=== PATIENT | male | born 1950 | race Caucasian/White ===

== ENCOUNTER 2019-05-12 04:58 | Inpatient (IN) | payer BC ==
[~2019-05-12] VITALS: Ht 185.4 cm; Wt 133.8 kg
[2019-05-12] VITALS (12 sets, daily range): BP systolic 136–157; BP diastolic 74–94
--- NOTE | 2019-05-12 05:15 | NUR ---
MS ADMINISTRATIVE OFFICE SPECIALIST NOTE PATIENT ARRIVED ONTO UNIT WITH [facility] AMBULATION, AT [facility] FOR DAY SURGERY FOR LEFT TOTAL KNEE ARTHROPLASTY SCHEDULED TODAY. A/O X4. TOLERATING ROOM AIR, O2 SAT 96%. RESPIRATIONS ARE EVEN AND UNLABORED, NO S./S SOB NOTED. DENIES PAIN AT THIS TIME. IV ACCESS IN LAC #20 PATENT AND SALINE LOCKED. BELONGINGS LIST COMPLETED, SKIN ASSESSMENT COMPLETED, SKIN INTACT, CONSENTS FOR SURGERY, BLOOD, ANESTHESIA SIGNED, OR CHECKLIST COMPLETED. PATIENT CHANGED INTO GOWN AT THIS TIME. COMPLETE ADMISSION COMPLETE. BED IS LOW AND LOCKED, SIDE RAILS UP X2, HOB ELEVATED 20 DEGREES. CALL LIGHT WITHIN REACH. WILL CONTINUE TO MONITOR.
[2019-05-12] MEDS ORDERED: ANESTHESIA TRAY IN PYXIS 1 EA TRAY MC ONE (05:50)
[2019-05-12] MEDS ORDERED: BACITRACIN 50000 UNITS/VIAL ONE (05:50)
--- NOTE | 2019-05-12 06:20 | NUR ---
MS RN NOTE PATIENT LEFT TO SURGERY WITH OR NURSE IN BED. WILL ENDORSE NEXT SHIFT.
[2019-05-12] MEDS ORDERED: TRANEXAMIC ACID 3,000 MG in SODIUM CHLORIDE IRRIG SOLUTION 70 ML IR ONE (06:30)
[2019-05-12] MEDS ORDERED: HYDROMORPHONE INJ 2 MG/ML DISP.SYRIN ONE (06:38)
[2019-05-12] MEDS ORDERED: BISACODYL SUPP (10 MG) 10 MG/SUPP.RECT SUPP.RECT RC PRN ×3 (07:00→12:00)
[2019-05-12] MEDS ORDERED: MENTHOL/CETYLPYRD (CEPACOL) 1 LOZ LOZENGE MM PRN (07:00)
[2019-05-12] MEDS ORDERED: MAG HYDROX/AL HYDROX/SIMETH 30 ML UDC PO PRN ×2 (07:30→12:00)
[2019-05-12] MEDS ORDERED: NALOXONE HCL 0.4 MG/ML AMPUL IV PRN (07:30)
[2019-05-12] MEDS ORDERED: SCOPOLAMINE HBR 1 EA PATCH.TD72 TD PRN ×2 (07:30)
[2019-05-12] MEDS ORDERED: MORPHINE SULFATE SR 30 MG TABLET.SA PO SCH ×2 (09:00→21:00)
--- NOTE | 2019-05-12 09:35 | NUR ---
tele poultry sexer: notes received pt from recovery room with dx: s/p left total knee arthroplasty. awake, a/ox4. dressing to left lower ext c/d/i with scd and ice pack. all orders carried out and noted. at bedside. oriented to room and surroundings. vss. instructed to call for assistance. will monitor.
[2019-05-12] MEDS: DOCUSATE SODIUM 100 MG CAPSULE PO SCH ×2 (10:17→16:09)
[2019-05-12] MEDS ORDERED: DOCU-141 PO (10:22)
[2019-05-12] MEDS ORDERED: BISA10SU61 RC (10:22)
[2019-05-12] MEDS ORDERED: SCOP1PAT11 TD (10:22)
[2019-05-12] MEDS ORDERED: BENZ1LOZ58 MM (10:22)
[2019-05-12] MEDS ORDERED: MAG355OR18 PO (10:22)
[2019-05-12] MEDS ORDERED: HYDR4TAB4 PO (10:22)
[2019-05-12] MEDS ORDERED: DULO20CA PO (10:22)
[2019-05-12] MEDS ORDERED: MORP30TA59 PO (10:22)
[2019-05-12] MEDS ORDERED: NALO0.4D4 IJ (10:22)
[2019-05-12] MEDS: HYDROMORPHONE HCL 2 MG TABLET PO PRN (10:24)
--- NOTE | 2019-05-12 10:24 | NUR ---
tele forestry aid technician: notes c/o 01/25 left knee pain, medicated with dilaudid 8mg po as ordered. awaiting for activities manager. remains at bedside. will continue to monitor.
--- NOTE | 2019-05-12 11:24 | NUR ---
tele pulley man: notes pt still c/o 01/25 pain. 2 rn preparing realtime reporter at this time. remains at bedside. will continue to monitor.
[2019-05-12] MEDS: HYDROMORPHONE MDV 30 MG in IV NS 0.9% 15 ML, PCA TOTAL VOLUME 1 BAG IV PRN ×3 (11:25)
--- NOTE | 2019-05-12 11:25 | NUR ---
tele custom frame assembler: notes body shop technician dilaudid started by 2 rn at this time with teaching provided to pt. remains at bedside. will monitor.
[2019-05-12] MEDS ORDERED: SENNOSIDES 8.6 MG TABLET PO PRN (11:30)
[2019-05-12] MEDS ORDERED: ZOLPIDEM TARTRATE 5 MG TABLET PO PRN (11:30)
[2019-05-12] MEDS: MORPHINE SULFATE SR 15 MG TABLET.SA PO SCH ×2 (11:35→21:19)
--- NOTE | 2019-05-12 11:35 | NUR ---
tele data recovery planner: notes pt still in a lot of pain despite metalizing machine operator dilaudid was started. ms contin 60mg po given as ordered. remains at bedside. instructed to call for assistance. will continue to monitor.
[2019-05-12] MEDS: IV D5/0.45 NACL 1,000 ML IV PRN ×2 (11:38→23:34)
[2019-05-12] MEDS ORDERED: NALOXONE HCL IJ SCH (12:00)
[2019-05-12] MEDS ORDERED: [UNRECOGNIZED DRUG - OTHER] MM PRN (12:00)
[2019-05-12] MEDS ORDERED: BENZOCAINE MM PRN (12:00)
[2019-05-12] MEDS ORDERED: HYDROMORPHONE HCL 2 MG PO PRN (12:00)
[2019-05-12] MEDS ORDERED: MENTHOL MM PRN (12:00)
--- NOTE | 2019-05-12 12:35 | NUR ---
tele boring machine operator vertical: notes pain is better per pt as stated. remains at bedside. call light within reach. will continue to monitor.
[2019-05-12 12:48] LABS: BASOPHILS % (AUTO) 0.2 % (0.0-2.0); HEMATOCRIT 44 % (39-51); HEMOGLOBIN 14.4 g/dL (13.5-17.5); LYMPHOCYTES # (AUTO) 0.7 /CMM (0.8-4.8); LYMPHOCYTES % (AUTO) 5.5 % (20.0-44.0); MEAN CORPUSCULAR HGB CONC 33 g/dl (31.0-36.0); MEAN CORPUSCULAR VOLUME 91 fL (80-96); MONOCYTES # (AUTO) 0.2 /CMM (0.1-1.30); MONOCYTES % (AUTO) 1.5 % (2.0-12.0); NEUTROPHILS % (AUTO) 92.8 % (43.0-81.0); PLATELET COUNT (AUTO) 212 /CMM (150-450); RED BLOOD CELL COUNT(AUTO) 4.78 MIL/uL (4.5-6.0); WHITE BLOOD COUNT (AUTO) 11.9 K/uL (4.3-11.0)
[2019-05-12 12:52] LABS: CALCIUM, SERUM 8.5 mg/dL (8.5-10.1); CREATININE 0.7 mg/dL (0.6-1.3); POTASSIUM 3.5 mmol/L (3.5-5.1)
--- NOTE | 2019-05-12 13:25 | NUR ---
tele automotive machinist: notes p.t. eval and tx done at this time.
--- NOTE | 2019-05-12 14:30 | NUR ---
tele educational technology coordinator: notes pt request to have bipap on at this time. r.t. at bedside. will continue to monitor.
[2019-05-12] MEDS: ANCEF 1 GM/50 ML D5W IV SCH ×4 (15:15→23:33)
--- NOTE | 2019-05-12 16:09 | NUR ---
tele mushroom spawn maker: notes pt wants to skip stool softener, stated, "i normally have it once a day."
--- NOTE | 2019-05-12 16:10 | NUR ---
tele mine shifter: notes bipap off at this time. instructed to call for assistance. pt remains on process owner 0.4mg with no basal rate with lockout int 12mins. pain is controlled per pt. will continue to monitor.
[2019-05-12] MEDS ORDERED: DOCUSATE SODIUM 100 MG CAPSULE PO SCH (17:00)
[2019-05-12] MEDS: HYDROMORPHONE INJ 2 MG/ML DISP.SYRIN SQ PRN (18:26)
--- NOTE | 2019-05-12 18:26 | NUR ---
tele trashman: notes cotton washer machine malfunction due to battery. called central for replacement. dilaudid 2mg sq given to right upper arm as ordered. at bedside. needs attended. will continue to monitor.
[2019-05-12] MEDS ORDERED: KEY,NONCONTROL,TO KEEP IN PYXI 1 EA MC ONE (18:34)
--- NOTE | 2019-05-12 18:35 | NUR ---
tele senior data quality analyst: notes business coordinator machine replaced by 2 rn and connected to pt. instructed to call for assistance. will continue to monitor.
--- NOTE | 2019-05-12 19:00 | NUR ---
tele disaster recovery coordinator: notes report given to pedro luis (britany) for continuity of care.
--- NOTE | 2019-05-12 19:55 | NUR ---
M/S RN OPENING NOTES PATIENT RECEIVED RESTING IN BED A/O x4. ABLE TO MAKE NEEDS KNOWN. PATIENT HAS NO CURRENT COMPLAINTS OF PAIN IT IS BEING MANAGED AND NO SIGNS OF ACUTE DISTRESS. PATIENT ON 2L OF O2 VIA NC. IV LOCATED ON LAC #20 ORCHARD HAND SET UP 0.4 MG AND LOCKOUT 12 MINUTES. SAFETY PRECAUTIONS IN PLACE WITH BED IN LOWEST POSITION, BED LOCKED, AND CALL LIGHT WITHIN REACH. WILL CONTINUE TO MONITOR.
[2019-05-12] MEDS: DULOXETINE HCL 30 MG CAPSULE.DR PO SCH (21:17)
--- NOTE | 2019-05-12 21:19 | NUR ---
M/S RN NOTE WAS UNABLE TO SCAN MEDICATION FOR SCHEDULED MORPHINE SULFATE SR 2100. MEDICATION THAT WAS AVAILABLE IN [facility] WAS EXTENDED RELEASE ONLY. CALLED PHARMACY, NO ONE ANSWERED. SPOKE WITH BITUMINOUS DISTRIBUTOR OPERATOR, ATTEMPTED TO CHANGE ORDER TO EXTENDED RELEASE BUT ONLY SLOW RELEASE AVAILABLE.
[2019-05-12] MEDS: ONDANSETRON HCL/PF 4 MG/2 ML VIAL IV PRN (21:43)
[2019-05-12] MEDS ORDERED: DULOXETINE HCL 20 MG CAPSULE.DR PO SCH (22:00)
[2019-05-13] MEDS: HYDROMORPHONE INJ 2 MG/ML DISP.SYRIN SQ PRN ×4 (00:17→21:29)
[2019-05-13] MEDS: HYDROMORPHONE HCL 2 MG TABLET PO PRN (05:52)
[2019-05-13 06:21] LABS: HEMOGLOBIN 13.3 g/dL (13.5-17.5)
--- NOTE | 2019-05-13 07:00 | NUR ---
M/S RN CLOSING NOTES PATIENT CURRENTLY RESTING IN BED A/O x4. NO SIGNS OF ACUTE DISTRESS OR SOB. ON 2L OF O2 NC. IV LOCATED ON L AC #20. CYLINDER LOADER SET UP FOR PAIN MANAGEMENT. SAFETY PRECAUTIONS IN PLACE WITH BED IN LOWEST POSITION, LOCKED, AND CALL LIGHT WITHIN REACH. WILL ENDORSE TO ONCOMING SHIFT ABOUT GALI.
--- NOTE | 2019-05-13 07:30 | NUR ---
RN OPENING NOTES PATIENT RECEIVED RESTING IN BED A/O x4,ABLE TO MAKE NEEDS KNOWN. PATIENT HAS NO CURRENT COMPLAINTS OF PAIN IT IS BEING MANAGED AND NO SIGNS OF ACUTE DISTRESS. PATIENT ON 2L OF O2 VIA NC. IV ON LAC #20 OIL OPERATOR SET UP 0.4 MG AND LOCKOUT 12 MINUTES. INSTRUCTED TO CALL FOR ASSISTANCE. SAFETY PRECAUTIONS IN PLACE WITH BED IN LOWEST POSITION, BED LOCKED, AND CALL LIGHT WITHIN REACH. WILL CONTINUE TO MONITOR.
[2019-05-13 08:00] VITALS: BP 158/107
--- NOTE | 2019-05-13 08:45 | NUR ---
rn notes patient nauseous and vomited 300ml emesis. zofran 4mg iv given as ordered. will reassess patient accordingly
[2019-05-13] MEDS: ONDANSETRON HCL/PF 4 MG/2 ML VIAL IV PRN ×2 (08:49→18:10)
[2019-05-13] MEDS ORDERED: HEPARIN SODIUM, PORCINE 5000 UNITS/1 ML VIAL SQ SCH (09:00)
[2019-05-13] MEDS ORDERED: ASPIRIN 325 MG TABLET PO SCH (09:00)
[2019-05-13] MEDS: DOCUSATE SODIUM 100 MG CAPSULE PO SCH ×2 (09:43→18:05)
[2019-05-13] MEDS: MORPHINE SULFATE SR 15 MG TABLET.SA PO SCH ×2 (09:43→18:09)
--- NOTE | 2019-05-13 09:45 | NUR ---
rn notes heparin 5000 units sq given as ordered. no bleeding or bruising noted
--- NOTE | 2019-05-13 10:00 | NUR ---
rn notes patient refused to be repositioned and to be check on the back. per patient, he doesnt want to be moved or repositioned. he also refused to be cleaned. patient wanted to rest for now.
[2019-05-13] MEDS ORDERED: METOCLOPRAMIDE HCL 10 MG/2 ML VIAL IV PRN (11:00)
[2019-05-13] MEDS ORDERED: KEY,NONCONTROL,TO KEEP IN PYXI 1 EA MC ONE (11:43)
[2019-05-13] MEDS: HYDROMORPHONE MDV 30 MG in IV NS 0.9% 15 ML, PCA TOTAL VOLUME 1 BAG IV PRN ×3 (11:46)
--- NOTE | 2019-05-13 11:46 | NUR ---
rn notes: SPINNING BATH PERSON changed dilaudid bag on SPINNING BATH PERSON pump. on 0.4mg with no basal rate with lockout int 12mins. witness by BrigidRN. Wasted 13ml of dilaudid on previous bag on med destroyer witness by BrigidRN
[2019-05-13 11:52] LABS: BASOPHILS % (AUTO) 0.3 % (0.0-2.0); EOSINOPHILS % (AUTO) 0.2 % (0.0-6.0); HEMATOCRIT 41 % (39-51); HEMOGLOBIN 13.8 g/dL (13.5-17.5); LYMPHOCYTES # (AUTO) 1.7 /CMM (0.8-4.8); LYMPHOCYTES % (AUTO) 15.9 % (20.0-44.0); MEAN CORPUSCULAR HGB CONC 33 g/dl (31.0-36.0); MEAN CORPUSCULAR VOLUME 91 fL (80-96); MONOCYTES # (AUTO) 1.2 /CMM (0.1-1.30); MONOCYTES % (AUTO) 11.1 % (2.0-12.0); NEUTROPHILS # (AUTO) 7.5 /CMM (1.8-8.9); NEUTROPHILS % (AUTO) 72.5 % (43.0-81.0); PLATELET COUNT (AUTO) 200 /CMM (150-450); RED BLOOD CELL COUNT(AUTO) 4.54 MIL/uL (4.5-6.0); WHITE BLOOD COUNT (AUTO) 10.4 K/uL (4.3-11.0)
[2019-05-13] MEDS ORDERED: BUME0.2513 PO (12:17)
--- NOTE | 2019-05-13 12:24 | NUR ---
rn notes called dr vines to ask if he can order norco. per , "norco is not going to help". also made him aware about nausea and vomiting episodes the patient had, per md, give the scopalamine patch. no new order for pain mgt.
[2019-05-13] MEDS ORDERED: SCOPOLAMINE HBR 1 EA PATCH.TD72 TD PRN (12:30)
[2019-05-13] MEDS: BUMETANIDE (1 MG) 1 MG TABLET PO SCH ×3 (13:23→18:06)
[2019-05-13 16:00] VITALS: BP 159/96
--- NOTE | 2019-05-13 18:00 | NUR ---
rn notes offered turning and repositioning every 2hrs throughout the shift but patient refused. patient doesnt want to be repositioned, he said he can move a little bit. explained risk and benefit but still refused. reminded patient to turn and move every 2hrs as needed to prevent any skin breakdown, verbalized understanding.
[2019-05-13] MEDS: IV D5/0.45 NACL 1,000 ML IV PRN (18:04)
--- NOTE | 2019-05-13 19:20 | NUR ---
RN CLOSING NOTES PATIENT IN STABLE CONDITION. ALL NEEDS ATTENDED AND PROVIDED. ALL DUE MEDS GIVEN ORDERED. KEPT PATIENT SAFE AND COMFORTABLE. BED IN LOW/LOCKED POSITION, SIDERAILS UPX2, CALL LIGHT IN REACH. ENDORSED TO NIGHT RN FOR GALI.
--- NOTE | 2019-05-13 19:45 | NUR ---
MS RN OPENING NOTES RECEIVED PATIENT FROM MORNING SHIFT, ALERT AND ORIENTED X 4. VERBALLY RESPONSIVE AND ABLE TO FOLLOW DIRECTIONS. BREATHING REGULAR AND UNLABORED ON ROOM AIR. LEFT AC G20 IV LINE INTACT AND PATENT, INFUSING WELL WITH NO BLEEDING OR S/S OF INFECTION/INFILTRATION OBSERVED. BODY ASSESSMENT DONE; S/P LEFT KNEE ARTHROPLASTY WITH CLEAN INTACT DRESSING; NO ACTIVE BLEEDING NOTED. COMPLAINED OF 2/10 LEFT KNEE PAIN; STATISTICIAN PUMP ON-GOING, HEALTH TEACHING OF HOW TO USE PUMP GIVEN. NON-PHARMACOLOGIC INTERVENTIONS PROVIDED. NO EPISODE OF NAUSEA/VOMITING SEEN OF THE TIME. ON CLEAR LIQUID DIET, TOLERATING WELL. CALL LIGHT IN REACH. BED LOW AND LOCKED ON SEMI FOWLERS POSITION. WILL CONTINUE TO MONITOR.
[2019-05-13] MEDS: ASPIRIN 325 MG TABLET PO SCH (19:49)
[2019-05-13 20:33] VITALS: BP 151/97
[2019-05-13 20:45] VITALS: BP 151/97
[2019-05-13] MEDS: DULOXETINE HCL 30 MG CAPSULE.DR PO SCH (21:23)
--- NOTE | 2019-05-13 21:30 | NUR ---
MS RN NOTES COMPLAINED OF 9/10 LEFT KNEE PAIN, DILAUDID 2MG GIVEN SQ. VITAL SIGNS WNL. NON-PHARMACOLOGIC INTERVENTIONS DONE. WILL CONTINUE TO MONITOR.
[2019-05-14] MEDS: IV D5/0.45 NACL 1,000 ML IV PRN ×2 (02:23→14:50)
[2019-05-14] MEDS: MORPHINE SULFATE SR 15 MG TABLET.SA PO SCH ×3 (02:34→17:24)
--- NOTE | 2019-05-14 05:45 | NUR ---
MS RN NOTES SEEN BY WITH NO NEW ORDER.
--- NOTE | 2019-05-14 06:25 | NUR ---
MS RN CLOSING NOTES PATIENT IN BED ALERT AND ORIENTED X 4. VERBALLY RESPONSIVE AND ABLE TO FOLLOW DIRECTIONS. BREATHING REGULAR AND UNLABORED ON OXYGEN VIA NASAL CANNULA AT 2L/MIN. LEFT AC G20 IV LINE INTACT AND PATENT, INFUSING WELL WITH NO BLEEDING OR S/S OF INFECTION/INFILTRATION OBSERVED. S/P LEFT KNEE ARTHROPLASTY WITH CLEAN INTACT DRESSING; NO ACTIVE BLEEDING NOTED. NO COMPLAINTS OF PAIN/DISCOMFORT REPORTED OF THE TIME. PROJECT MANAGER INDUSTRIAL PUMP ON-GOING. NO EPISODE OF NAUSEA/VOMITING SEEN THE WHOLE SHIFT. CALL LIGHT IN REACH. BED LOW AND LOCKED ON SEMI FOWLERS POSITION. WILL ENDORSE TO MORNING SHIFT FOR GALI.
[2019-05-14 06:46] LABS: BASOPHILS % (AUTO) 0.4 % (0.0-2.0); EOSINOPHILS % (AUTO) 0.4 % (0.0-6.0); HEMATOCRIT 40 % (39-51); HEMOGLOBIN 13.4 g/dL (13.5-17.5); LYMPHOCYTES # (AUTO) 1.4 /CMM (0.8-4.8); LYMPHOCYTES % (AUTO) 15.2 % (20.0-44.0); MEAN CORPUSCULAR HGB CONC 33 g/dl (31.0-36.0); MEAN CORPUSCULAR VOLUME 91 fL (80-96); NEUTROPHILS # (AUTO) 6.6 /CMM (1.8-8.9); PLATELET COUNT (AUTO) 213 /CMM (150-450); RED BLOOD CELL COUNT(AUTO) 4.42 MIL/uL (4.5-6.0)
[2019-05-14 07:01] LABS: CALCIUM, SERUM 8.4 mg/dL (8.5-10.1); CREATININE 0.6 mg/dL (0.6-1.3); MAGNESIUM 1.8 mg/dL (1.8-2.4); PHOSPHORUS 1.8 mg/dL (2.5-4.9); POTASSIUM 3.5 mmol/L (3.5-5.1)
[2019-05-14 08:00] VITALS: BP 155/84
--- NOTE | 2019-05-14 08:00 | NUR ---
MS RN OPENING NOTES RECEIVED PT ALERT AND ORIENTED X 4. VERBALLY RESPONSIVE AND ABLE TO FOLLOW DIRECTIONS. BREATHING REGULAR AND UNLABORED ON ROOM AIR. LEFT AC G20 IV LINE INTACT AND PATENT, INFUSING WELL WITH NO BLEEDING OR S/S OF INFECTION/INFILTRATION OBSERVED. BODY ASSESSMENT DONE; S/P LEFT KNEE ARTHROPLASTY WITH CLEAN INTACT DRESSING; NO ACTIVE BLEEDING NOTED. COMPLAINED OF 2/10 LEFT KNEE PAIN; CAR SHUNTER PUMP ON-GOING, HEALTH TEACHING OF HOW TO USE PUMP GIVEN. NON-PHARMACOLOGIC INTERVENTIONS PROVIDED. NO EPISODE OF NAUSEA/VOMITING SEEN OF THE TIME. ON CLEAR LIQUID DIET, TOLERATING WELL. CALL LIGHT IN REACH. BED LOW AND LOCKED ON SEMI FOWLERS POSITION. WILL CONTINUE TO MONITOR.
[2019-05-14] MEDS: DOCUSATE SODIUM 100 MG CAPSULE PO SCH ×2 (08:43→16:20)
[2019-05-14] MEDS: BUMETANIDE (1 MG) 1 MG TABLET PO SCH ×2 (08:43→16:19)
[2019-05-14] MEDS: ASPIRIN 325 MG TABLET PO SCH ×2 (08:43→16:19)
[2019-05-14] MEDS ORDERED: K PHOS NEUTRAL 250 MG TABLET PO ONE (11:00)
[2019-05-14] MEDS ORDERED: FLUT16SP NS (12:18)
[2019-05-14] MEDS ORDERED: GLUC-141 PO (12:18)
[2019-05-14] MEDS ORDERED: TAMS-12 PO (12:18)
[2019-05-14] MEDS ORDERED: AMLO5TAB4 PO (12:18)
[2019-05-14] MEDS ORDERED: POTA20TA83 PO (12:18)
[2019-05-14] MEDS ORDERED: QUIN20TA18 PO (12:18)
[2019-05-14] MEDS ORDERED: LAMO25TA10 PO (12:18)
[2019-05-14] MEDS ORDERED: SIMV10TA98 PO (12:18)
[2019-05-14] MEDS ORDERED: GABA600T12 PO (12:18)
[2019-05-14] MEDS ORDERED: META800T85 PO (12:18)
[2019-05-14] MEDS ORDERED: CALC-883 PO (12:18)
[2019-05-14] MEDS ORDERED: METO-357 PO (12:18)
[2019-05-14] MEDS ORDERED: DIVA-78 PO ×2 (12:18)
[2019-05-14] MEDS ORDERED: CHOL50004 PO (12:18)
[2019-05-14] MEDS ORDERED: VITA1TAB56 PO (12:18)
[2019-05-14] MEDS ORDERED: ASPI-605 PO (12:18)
[2019-05-14] MEDS ORDERED: CETI-108 PO (12:18)
[2019-05-14] MEDS ORDERED: LOFE0.18 PO (12:18)
[2019-05-14] MEDS ORDERED: DULO30CA2 PO (12:18)
[2019-05-14 14:00] VITALS: BP 164/89
[2019-05-14] MEDS: AMLODIPINE BESYLATE 5 MG TABLET PO SCH (14:29)
[2019-05-14] MEDS: HYDROMORPHONE HCL 2 MG TABLET PO PRN (14:30)
[2019-05-14 16:00] VITALS: BP 164/97
[2019-05-14] MEDS ORDERED: HOME MED MISCELLANEOUS XX SCH ×2 (17:30)
[2019-05-14] MEDS ORDERED: GABAPENTIN 400 MG CAPSULE PO SCH (17:30)
[2019-05-14] MEDS ORDERED: QUINAPRIL HCL 10 MG TABLET PO SCH (17:30)
[2019-05-14] MEDS ORDERED: BUMETANIDE (1 MG) 1 MG TABLET PO SCH (17:30)
[2019-05-14] MEDS: METOPROLOL SUCCINATE 50 MG TAB.SR.24H PO SCH (17:42)
--- NOTE | 2019-05-14 17:50 | NUR ---
[facility] 1 MG PO ADMINISTERED AT 1619.[facility] HAS A DOUBLE ENTRY ORDER
--- NOTE | 2019-05-14 17:59 | NUR ---
PT'S GIRLFRIEND NOTIFIED OF BRINGING PT'S ACCUPRIL HOME MED AND THE GIRLFRIEND STATED THAT PT'S HOME MEDS ARE IN [place] AND NO FAMILY OR FRIEND CAN BRING IT OVER HERE.
--- NOTE | 2019-05-14 18:09 | NUR ---
PHARMACY MADE AWARE
--- NOTE | 2019-05-14 19:15 | NUR ---
MS RN PM OPENING NOTES BEDSIDE REPORT RECIEVED FROM RITA MAYORGA. PT ALERT AND ORIENTED X 4. VERBALLY RESPONSIVE AND ABLE TO FOLLOW DIRECTIONS. BREATHING REGULAR AND UNLABORED ON 2LNC. LEFT AC G20 IV LINE INTACT AND PATENT, NO S/S OF INFECTION/INFILTRATION OBSERVED. S/P LEFT KNEE ARTHROPLASTY WITH CLEAN INTACT DRESSING; NO ACTIVE BLEEDING NOTED. DENIES ANY MAJOR PAIN TO LEFT KNEE REVIEWED PAIN MANAGEMENT PLAN WITH PATIENT VERBALIZED UNDERSTANDING. CALL LIGHT IN REACH. BED LOW AND LOCKED ON SEMI FOWLERS POSITION. REVIEWED POC. QUESTIONS CONCERNS ADDRESSED WILL CONTINUE TO MONITOR.
[2019-05-14 20:38] VITALS: BP 140/86
[2019-05-14] MEDS: DULOXETINE HCL 30 MG CAPSULE.DR PO SCH (21:14)
[2019-05-14] MEDS: DIVALPROEX SODIUM 500 MG TABLET.DR PO SCH (21:15)
[2019-05-14] MEDS: SIMVASTATIN 10 MG TABLET PO SCH (21:15)
[2019-05-14] MEDS: TAMSULOSIN 0.4 MG CAP.SR.24H PO SCH (21:15)
--- NOTE | 2019-05-14 23:40 | NUR ---
RT NOTE PATIENT REQUESTED OFF BIPAP. NO SOB NOTED. PLACED BACK ON 2 L NASAL CANNULA. SPO2 94% HR 81 BPM. WILL CONTINUE TO MONITOR. Addendum: 05/14/19 at 2342 by NAYA MEJIA RT Amended: Links added.
[2019-05-15] MEDS: IV D5/0.45 NACL 1,000 ML IV PRN ×2 (00:37→08:48)
--- NOTE | 2019-05-15 00:51 | NUR ---
pt was not tolerating bipap and taken off by rt earlier tonight. pt seen with eyes closed at this time rr of 16 spo2 94% on 2lnc.
[2019-05-15] MEDS: MORPHINE SULFATE SR 15 MG TABLET.SA PO SCH ×4 (02:00→17:06)
--- NOTE | 2019-05-15 02:00 | NUR ---
non admin ms contin per speaking with patient earlier pt did not want to be awaken to take medication. rr of16 seen in room with eyes closed on 2lnc spo2 94%
--- NOTE | 2019-05-15 05:00 | NUR ---
pt seen, denies pain discomfort at this time. verbalized understanding to call for assistance if needed. bed down locked call light in reach
[2019-05-15 06:48] LABS: CALCIUM, SERUM 8.6 mg/dL (8.5-10.1); CREATININE 0.5 mg/dL (0.6-1.3); POTASSIUM 3.5 mmol/L (3.5-5.1)
--- NOTE | 2019-05-15 07:30 | NUR ---
RN PM CLOSING NOTE PT SEEN WITH EYES CLOSED. BREATHING REGULAR AND UNLABORED ON 2LNC. LEFT AC G20 IV LINE INTACT AND PATENT, NO S/S OF INFECTION/INFILTRATION OBSERVED. CALL LIGHT IN REACH. BED LOW AND LOCKED ON SEMI FOWLERS POSITION.
[2019-05-15 08:00] VITALS: BP_SYST 154; BP_DIAS 86; BP_DIAS 89
--- NOTE | 2019-05-15 08:00 | NUR ---
MS RN AM OPENING NOTES PT ALERT AND ORIENTED X 4. VERBALLY RESPONSIVE AND ABLE TO FOLLOW DIRECTIONS. BREATHING REGULAR AND UNLABORED ON 2LNC. LEFT AC G20 IV LINE INTACT AND PATENT, NO S/S OF INFECTION/INFILTRATION OBSERVED. S/P LEFT KNEE ARTHROPLASTY WITH CLEAN INTACT DRESSING; NO ACTIVE BLEEDING NOTED. DENIES ANY MAJOR PAIN TO LEFT KNEE REVIEWED PAIN MANAGEMENT PLAN WITH PATIENT VERBALIZED UNDERSTANDING. CALL LIGHT IN REACH. BED LOW AND LOCKED ON SEMI FOWLERS POSITION. REVIEWED POC. QUESTIONS CONCERNS ADDRESSED WILL CONTINUE TO MONITOR.
[2019-05-15] MEDS: FLUTICASONE PROPIONATE 16 GM BOTTLE NS SCH (08:52)
[2019-05-15] MEDS: LamoTRIgine 25 MG TABLET PO SCH (08:53)
[2019-05-15] MEDS: DULOXETINE HCL 30 MG CAPSULE.DR PO SCH ×2 (08:54→21:56)
[2019-05-15] MEDS: CALCIUM CARBONATE 500 MG TAB.CHEW PO SCH (08:54)
[2019-05-15] MEDS: DIVALPROEX SODIUM 500 MG TABLET.DR PO SCH ×2 (08:54→21:56)
[2019-05-15] MEDS: POTASSIUM CHLORIDE 20 MEQ TAB.PRT.SR PO SCH ×2 (08:55→16:15)
[2019-05-15] MEDS: AMLODIPINE BESYLATE 5 MG TABLET PO SCH (08:55)
[2019-05-15] MEDS: VITAMIN B COMP W-C 1 TAB TABLET PO SCH (08:55)
[2019-05-15] MEDS: DOCUSATE SODIUM 100 MG CAPSULE PO SCH ×2 (08:56→16:15)
[2019-05-15] MEDS: METOPROLOL SUCCINATE 50 MG TAB.SR.24H PO SCH (08:56)
[2019-05-15] MEDS: BUMETANIDE (1 MG) 1 MG TABLET PO SCH ×2 (08:56→16:15)
[2019-05-15] MEDS: GABAPENTIN 300 MG CAPSULE PO SCH ×2 (08:56→16:15)
[2019-05-15] MEDS: cetrizine 10 MG TABLET PO SCH (08:56)
[2019-05-15] MEDS: ASPIRIN 325 MG TABLET PO SCH ×2 (08:57→16:15)
[2019-05-15] MEDS ORDERED: AMLODIPINE BESYLATE 5 MG TABLET PO SCH (09:00)
[2019-05-15] MEDS ORDERED: CHOLECALCIFEROL (VITAMIN D 3) 400 UNIT TABLET PO SCH (09:00)
[2019-05-15] MEDS ORDERED: QUINAPRIL HCL 10 MG TABLET PO SCH (09:00)
[2019-05-15] MEDS ORDERED: CHOLECALCIFEROL 1,000 UNIT TABLET (VIT D3) PO SCH (11:00)
[2019-05-15] MEDS ORDERED: POLYETHYLENE GLYCOL 3350 17 GM POWD.PACK PO PRN (12:00)
--- NOTE | 2019-05-15 12:47 | NUR ---
PT AMBULATED WITH P.T. USING FWW-TOLERATING WELL.
[2019-05-15 13:00] VITALS: BP 135/82
[2019-05-15] MEDS: LISINOPRIL (20MG) 20 MG TABLET PO SCH (13:49)
--- NOTE | 2019-05-15 13:50 | NUR ---
PT DESATURATES TO 86% IN ROOM AIR WITHOUT C/O SOB/DISTRESS.PLACED PT BACK ON O2 AT 2L/MIN VIA NC WITH 92% O2 SAT.WILL INFORM CHACHO GONZALEZ.
--- NOTE | 2019-05-15 14:00 | NUR ---
ENCOURAGED TO USE INCENTIVE SPIROMETER EVERY TWO HRS WHILE AWAKE.CXR ORDERED
[2019-05-15 16:00] VITALS: BP 164/97
--- NOTE | 2019-05-15 16:00 | NUR ---
PT'S BP WAS 164/97 HR 83 WHILE DRINKING COFFEE.WILL RECHECK LATER.
--- NOTE | 2019-05-15 17:00 | NUR ---
RECHECKED BP MANUALLY 150/80 HR 80.WITH O2 SAT OF 96% WITH O2 AT 2L/MIN VIA NC. REINFORCED TO USE INCENTIVE SPIROMETER EVERY TWO HRS WHILE AWAKE.
[2019-05-15 17:09] VITALS: BP 150/80
--- NOTE | 2019-05-15 17:16 | NUR ---
PT IS ON/OFF WITH IVF D51/2 NS AT 125 ML/HR DUE TO WORKING OUT WITH P.T. 2X TODAY.
--- NOTE | 2019-05-15 19:35 | NUR ---
MS/RN NOTES RECEIVED PT. LYING IN BED RESTING. PT. IS EASILY AROUSABLE TO NAME. PT. IS AWAKE, ALERT AND ORIENTED X4. BREATHING EVEN AND UNLABORED ON 2LPM O2 VIA NC. NO SOB, RESPIRATORY DISTRESS OR COMPLAINTS OF PAIN NOTED AT THIS TIME. PT. WITH LEFT AC 20 GAUGE PERIPHERAL IV PRESENT, PATENT AND INTACT ADMINISTERING TO PT. D5 1/2 NS @ 125 ML/HR. PT. WITH LEFT KNEE SURGICAL DRESSING PRESENT, CLEAN, DRY AND INTACT. PER DAYSHIFT NURSE MD ONLY TO CHANGE DRESSING. BED LOCKED AND IN LOWEST POSITION, SIDE RAILS UP X3, CALL LIGHT WITHIN REACH, WILL CONTINUE TO MONITOR.
[2019-05-15 20:00] VITALS: BP 132/80
[2019-05-15] MEDS: TAMSULOSIN 0.4 MG CAP.SR.24H PO SCH (21:57)
[2019-05-15] MEDS: SIMVASTATIN 10 MG TABLET PO SCH (21:57)
--- NOTE | 2019-05-15 22:01 | NUR ---
RN NOTES Had to do manual barcode for the scheduled night meds because computer before the scanned meds could be saved. Already discarded the med wrappers in the trash bin. Patient took all of the meds. Tolerated well.
[2019-05-16] MEDS: MORPHINE SULFATE SR 15 MG TABLET.SA PO SCH (02:00)
--- NOTE | 2019-05-16 06:15 | NUR ---
MS/RN NOTES PT. IS LYING IN BED RESTING. BREATHING EVEN AND UNLABORED ON 2LPM O2 VIA NC. NO SOB, RESPIRATORY DISTRESS OR COMPLAINTS OF PAIN NOTED AT THIS TIME AND THROUGHOUT SHIFT. PT. WITH LEFT AC 20 GAUGE PERIPHERAL IV PRESENT, PATENT AND INTACT ADMINISTERING TO PT. D5 1/2 NS @ 125 ML/HR. PT. WITH LEFT KNEE SURGICAL DRESSING PRESENT, CLEAN, DRY AND INTACT. PT. REFUSED NOCTURNAL BIPAP, NO SNORING NOTED, PT. O2 SAT STAYED ABOVE 93%. ALL PT. NEEDS MET. BED LOCKED AND IN LOWEST POSITION, SIDE RAILS UP X3, CALL LIGHT WITHIN REACH, WILL ENDORSE TO DAYSHIFT NURSE FOR CONTINUITY OF CARE.
--- NOTE | 2019-05-16 07:30 | NUR ---
MS RN OPENING NOTE RECEIVED PATIENT IN BED SLEEPING COMFORTABLY. PATIENT IN NO ACUTE DISTRESS. NO SOB NOTED. PATIENT BREATHING IS EVEN AND UNLABORED. PATIENT DRESSING DRY AND INTACT, NO S/S OF BLEEDING. BED ALARM IS ON. SAFETY PRECAUTIONS IN PLACE. PATIENT BED IS LOCKED AND IN LOWEST POSITION. CALL LIGHT WITHIN REACH. WILL CONTINUE TO MONITOR.
[2019-05-16 08:00] VITALS: BP 145/82
[2019-05-16] MEDS: DULOXETINE HCL 30 MG CAPSULE.DR PO SCH (08:32)
[2019-05-16] MEDS: ASPIRIN 325 MG TABLET PO SCH ×2 (08:32→16:26)
[2019-05-16] MEDS: CALCIUM CARBONATE 500 MG TAB.CHEW PO SCH (08:33)
[2019-05-16] MEDS: LamoTRIgine 25 MG TABLET PO SCH (08:34)
[2019-05-16] MEDS: GABAPENTIN 300 MG CAPSULE PO SCH ×2 (08:34→16:26)
[2019-05-16] MEDS: DOCUSATE SODIUM 100 MG CAPSULE PO SCH ×2 (08:34→16:26)
[2019-05-16] MEDS: AMLODIPINE BESYLATE 5 MG TABLET PO SCH (08:35)
[2019-05-16] MEDS: DIVALPROEX SODIUM 500 MG TABLET.DR PO SCH (08:36)
[2019-05-16] MEDS: POTASSIUM CHLORIDE 20 MEQ TAB.PRT.SR PO SCH ×2 (08:36→16:25)
[2019-05-16] MEDS: BUMETANIDE (1 MG) 1 MG TABLET PO SCH ×2 (08:36→16:25)
[2019-05-16] MEDS: cetrizine 10 MG TABLET PO SCH (08:36)
[2019-05-16] MEDS: VITAMIN B COMP W-C 1 TAB TABLET PO SCH (08:36)
[2019-05-16] MEDS: METOPROLOL SUCCINATE 50 MG TAB.SR.24H PO SCH (08:37)
[2019-05-16] MEDS: LISINOPRIL (20MG) 20 MG TABLET PO SCH (08:38)
[2019-05-16] MEDS: FLUTICASONE PROPIONATE 16 GM BOTTLE NS SCH (08:38)
[2019-05-16] MEDS ORDERED: MORPHINE SULFATE SR 15 MG TABLET.SA PO SCH (09:00)
[2019-05-16] MEDS ORDERED: POLYETHYLENE GLYCOL 3350 17 GM POWD.PACK PO SCH (09:00)
--- NOTE | 2019-05-16 13:00 | NUR ---
MS RN NOTE ENCOURAGED TO USE INCENTIVE SPIROMETER. SURGICAL DRESSING TO BE CHANGED BY MD ONLY. DRESSING IS DRY AND INTACT. NO SIGNS OF BLEEDING NOTED.
--- NOTE | 2019-05-16 14:00 | NUR ---
MS RN NOTE SEEN BY PT, PATIENT TOLERATED WELL. PATIENT IN NO ACUTE DISTRESS.
[2019-05-16] MEDS ORDERED: DOCU-270 PO (15:31)
[2019-05-16] MEDS ORDERED: BUME1TAB8 PO (15:31)
[2019-05-16] MEDS ORDERED: ASPI-992 PO (15:31)
[2019-05-16] MEDS ORDERED: SENN-168 PO (15:31)
[2019-05-16] MEDS ORDERED: MORP15TA10 PO (15:31)
[2019-05-16] MEDS ORDERED: LISI-603 PO (15:31)
[2019-05-16] MEDS ORDERED: DULO30CA2 PO (15:31)
[2019-05-16 16:00] VITALS: BP 134/90
--- NOTE | 2019-05-16 17:42 | NUR ---
MS HIDE HOUSE SUPERVISOR NOTE PATIENT MEDICALLY STABLE FOR DISCHARGE. PATIENT VITAL SIGNS WNL. PATIENT IN NO ACUTE DISTRESS. NO SOB NOTED. PATIENT BREATHING IS EVEN AND UNLABORED. PATIENT REFUSED TO HAVE SKIN ASSESSED. EDUCATED IMPORTANCE OF SKIN ASSESSMENT, PATIENT REFUSED. PATIENT LEG DRESSING IS DRY AND INTACT, NO S/S OF BLEEDING NOTED. PROVIDED PATIENT WITH DC INSTRUCTIONS. PATIENT VERBALIZED UNDERSTANDING. PATIENT ID BAND REMOVED. IV REMOVED. PATIENT KEPT CLEAN, DRY, AND COMFORTABLE THROUGHOUT SHIFT. PATIENT ENCOURAGED TO REPOSITION AND TURN. PATIENT NEEDS AND CONCERNS ADDRESSED. PATIENT SIGNED BELONGING LIST, ACKNOWLEDGES GIRLFRIEND BROUGHT THE REST OF HIS BELONGINGS WITH HER TO MEET HIM AT [facility]. PATIENT HAS REST OF ALL BELONGINGS. REPORT GIVEN TO [facility]. PATIENT ON GURNEY TO AMBULANCE TO [facility] . MD AWARE OF DISCHARGE.
== END 2019-05-16 17:51 | DRG 470 ==
LOC: DS 04:58 → MED 05:01
PROVIDERS: ADMIT Hospitalist; ATTEND Nurse Practitioner Acute Care
PROC: 0SRD0J9 Replacement of Left Knee Joint with Synthetic Substitute, Cemented, Open Approach (ICD-10-PCS; principal; 2019-05-12)
PROC: 5A09457 Assistance with Respiratory Ventilation, 24-96 Consecutive Hours, Continuous Positive Airway Pressure (ICD-10-PCS; principal; 2019-05-12)
DX: M17.12 Unilateral primary osteoarthritis, left knee (principal); D68.59 Other primary thrombophilia; J98.11 Atelectasis; F11.20 Opioid dependence, uncomplicated; E66.01 Morbid (severe) obesity due to excess calories; Z68.38 Body mass index [BMI] 38.0-38.9, adult; D72.829 Elevated white blood cell count, unspecified; F17.210 Nicotine dependence, cigarettes, uncomplicated; G47.33 Obstructive sleep apnea (adult) (pediatric); R09.02 Hypoxemia; G89.4 Chronic pain syndrome; F41.9 Anxiety disorder, unspecified; F32.9 Major depressive disorder, single episode, unspecified; M10.9 Gout, unspecified; E78.5 Hyperlipidemia, unspecified; H91.90 Unspecified hearing loss, unspecified ear; Z85.820 Personal history of malignant melanoma of skin; Z87.01 Personal history of pneumonia (recurrent); I10 Essential (primary) hypertension
CPT/HCPCS: 36415; 71045-TC; 80048-TC; 83735-TC; 84100-TC; 85025-TC; 85027-TC; 86850-TC; 87081-TC; 88305-TC; 88311-TC; 94660; 94760-TC; 94799-TC; 97110-TC; 97112-TC; 97116-TC; 97530-TC; 97760-TC; A4216; A4217; C1713; C1776; G0378; J0360; J0690; J1100; J1170; J1644; J1885; J2405; J2704; J3490; J7060; L1830